=== PATIENT | male | born 1985 | race Caucasian/White ===

== ENCOUNTER 2023-07-29 20:30 | Emergency (ER) | payer OTHER, SELFPAY ==
[2023-07-29 20:34] VITALS: BP 164/107; PULSE 94; RESP 16; TEMP 36.6; O2SAT 96
[2023-07-29] MEDS: Acetaminophen 500 MG TAB 1000 MG PO (20:57)
[2023-07-29] MEDS: Ketorolac 30 MG/ML VIAL IM (20:57)
--- NOTE | 2023-07-29 21:01 | W.ED.GENAD ---
Discharge Plan Disposition Patient Disposition: Home Condition: Stable Discharge Details Clinical Impression: Patella nena Primary Care Provider: None,None ED Provider: Ronald Bae Home Meds and New Rx's Prescriptions: No Action No Known Home Meds Discharge Instructions Instructions: Patella Tendon Repair (DC), Patellar Dislocation (ED), Tendon Rupture (ED) Additional Instructions: You were seen in the emergency department for your condition known as patella nena. You likely have ruptured your patellar tendon- this will need surgical repair. I have spoken to [facility]- they will contact you to schedule surgery this week. Remain in knee immobilizer 26/09, use crutches, toe tap is ok for balance. Rest, ICE to complete numbness, ELEVATE your knee. Take 1000mg Tylenol every 6 hours like clockwork, take 440 mg Aleve every 12 hours, after 1.5 weeks please reduce Aleve to 220mg every 12 hours. Return to ED for any complete numbness or severe swelling below your left knee. Referrals: [facility] [Provider Group] Discharge Data Discharge Date/Time-TO BE ENTERED AT DEPARTURE: 07/29/23 22:03 HPI General Date/Time Provider Initiated Documentation: 07/29/23 20:36. HPI Narrative: 38 year-old male presents to ED today by POV/wheelchair, severe L knee pain with a chief complaint of L knee pain after walking down small staircase with his daughter, he fell and had severe L knee pain- unable to bear weight or move it with onset just prior to arrival. Quality described as severe knee pain all around the knee, no radiation to numbness/tingling distally, severe swelling to knee, redness, warmth to touch, endorses not being able to extend knee. Severity is described as 10/10. Palliating factors include nothing attempted yet. Provoking factors include nothing specific, no recent antibiotics or steroids. Patient not anticoagulated. Related Data Home Medications Medication Instructions Recorded Confirmed Unknown [No Known Home Meds] 07/29/23 07/29/23 Allergies Allergy/AdvReac Type Severity Reaction Status Date / Time No Known Allergies Allergy Unverified 07/29/23 20:39 General Stated Complaint: Orthopedic BRITNI: 4 Review of Systems All systems reviewed & are unremarkable except as noted in HPI and below Exam Narrative Exam Narrative: GENERAL APPEARANCE: Well-nourished, non-toxic, awake and alert, atraumatic, no acute distress. SKIN: Warm, pink, dry, intact, without rashes/lesions/ulcerations. HEAD: Normocephalic, atraumatic, normal hair distribution for gender/age. EYES: Pupils PERRLA, EOMs intact without nystagmus, normal conjunctiva, no exudates on lids/lashes. ENT: Nares patent, no circumoral cyanosis, no facial swelling NECK: Supple, trachea midline, painless cervical ROM. LUNGS/CHEST: Non-labored respirations, normal A/P diameter, symmetrical expansion, no chest wall deformity HEART (CV/PV): Regular rate, L dorsalis pedis pulse 2+, no peripheral edema, no JVD. ABDOMEN: Soft, non-distended, no guarding. MSK: Normal ROM, no swelling/deformity to bilateral UEs or LEs, moving all extremities without weakness, no cyanosis, spine midline without tenderness, normal curvature. L LE: Diffuse swelling and tenderness to the left knee, the patella is palpated superior to the knee joint, there is mild ecchymosis at the joint line, special tests of the knee not performed due to pain, patient is unable to flex the knee, sensation and circulation are intact distally and has no unilateral severe calf swelling, femur and tibia/fibula are stable. NEURO: Mental Status AAOx4 - alert to person, place, time, events No facial droop, no forehead involvement. Motor: No focal weakness - strength 5/5 in bilateral UEs and LEs, proximal and distal, symmetric. Sensory: sensation intact to light touch globally. Gait NT, was able to use crutches short distances PSYCH: euthymic, cooperative, pleasant, appropriate speech Course Vital Signs Vital signs: Vital Signs Temperature 36.6 C 07/29/23 20:34 Pulse 94 H 07/29/23 20:34 Respiratory Rate 16 07/29/23 20:34 Blood Pressure 164/107 H 07/29/23 20:34 Pulse Oximetry 96 07/29/23 20:34 Temperature 36.6 C 07/29/23 20:34 Temperature Source Oral 07/29/23 20:34 Pulse 94 H 07/29/23 20:34 Respiratory Rate 16 07/29/23 20:34 Respiratory Effort Normal 07/29/23 20:37 Blood Pressure 164/107 H 07/29/23 20:34 Pulse Oximetry 96 07/29/23 20:34 Oxygen Delivery Method Room Air 07/29/23 20:34 Oxygen Flow Rate 0 07/29/23 20:34 Pain Level 10 07/29/23 20:57 Medical Decision Making This dictation utilizes [id number] dictation software and may contain unedited grammatical errors. 38 y/o M presents to ED today with a chief complaint of L knee pain, had a minor fall with severe L knee pain on small staircase, denies numbness/tingling, endorses severe pain, onset just prior to arrival- unable to bear weight- R-side dominant. Patient denies prior knee history, denies recent antibiotics or steroid use. Patients' medical history: otherwise healthy. 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 Pertinent exam findings / vital signs include L LE: Diffuse swelling and tenderness to the left knee, the patella is palpated superior to the knee joint, there is mild ecchymosis at the joint line, special tests of the knee not performed due to pain, patient is unable to flex the knee, sensation and circulation are intact distally and has no unilateral severe calf swelling, femur and tibia/fibula are stable.. Differential / pathologies of concern include patella nena, fracture, ligamentous injury of knee. Diagnostic studies of: -XR L Knee - shows patella nena. Interventions of: -Consult ortho > knee immobilizer and crutches- surgery outpatient this week. ED Course/Assessment/Plan: 38-year-old male presents with severe left knee pain, inability to range the lower leg after carrying his daughter down steps, missed a step and does not really know what happened, does not overtly endorse a pop. X-ray shows patella nena, consulted with orthopedics Dr. Coffman, recommends knee immobilizer and crutches and outpatient surgery to follow this week. Provided the patient with to go pack of oxycodone, he did not wish to have narcotic pain management was having significant pain with crutch ambulation. Recommend RICE therapy and therapeutic dosing Tylenol and ibuprofen, strict return criteria for any signs of neurovascular compromise, counseled extensively on aggressive RICE regimen. Findings not consistent with neurovascular compromise. Disposition of Patella [place]. Patient verbalized understanding of the plan and return to ED criteria and engaged in shared decision making. Medical Records Medical records reviewed: Yes I reviewed the patient's medical records. Imaging Data Radiologic Study: Attestation: I personally reviewed and interpreted this imaging study as follows: Imaging: X-Ray My impression: Disagree with vRAD, clear tendon disruption and superior location of patella from normal anatomical position. Radiologist's impression: Exam: XR Left Knee Exam date and time: 07/29/2023 9:16 PM Age: 38 years old Clinical indication: Injury or trauma; Blunt trauma; Left; Injury date: 07/29/23; Patient HX: Knee pain, trip and fall. Patient says they tripped on stairs TECHNIQUE: Imaging protocol: Radiologic exam of the left knee. Views: 3 views. COMPARISON: No relevant prior studies available. FINDINGS: Bones/joints: No acute fracture or dislocation. Soft tissues: Mild prepatellar and anterior infrapatellar soft tissue swelling, likely contusion/edema. IMPRESSION: 1. No acute fracture or dislocation. 2. Mild prepatellar and anterior infrapatellar soft tissue swelling, likely contusion/edema. Dictated and Authenticated by: Dano Sal MD. Ordering:RENE Cardenas MD Quality:[facility] Health Related Social Needs: No Data to Display PFSH All Active Problems (Updated 07/29/23 @ 21:51 by JAH Perry) Patella nena (Acute) Social History Smoking risk assessment performed?: No
--- NOTE | 2023-07-29 21:24 | DI.RAD_ITS ---
Exam(s) XR KNEE LT 3V AP,LAT,JINA EXAM: XR KNEE LT 3V AP,LAT,JINA CLINICAL HISTORY: knee pain, trip fall. TECHNIQUE: 2D digital imaging was performed. Three views. COMPARISON: No exams were available for comparison FINDINGS: BONES: No acute fracture is present. No bony destructive lesion is seen. JOINTS: The patella is high-riding. Findings suspicious for patellar tendon tear. A small joint eff usion is seen. The joint spaces are maintained. SOFT TISSUE: Soft tissue swelling anterior to patellar tendon. IMPRESSION: Findings suspicious for patellar tendon tear. DATA REPOSITORY: RADIATION DOSE DELIVERED:
[2023-07-29 22:03] VITALS: RESP 18
--- NOTE | 2023-07-29 22:11 | DI.VRAD_ITS ---
PROCEDURE INFORMATION: Exam: XR Left Knee Exam date and time: 07/29/2023 9:16 PM Age: 38 years old Clinical indication: Injury or trauma; Blunt trauma; Left; Injury date: 07/29/23; Patient HX: Knee pain, trip and fall. Patient says they tripped on stairs TECHNIQUE: Imaging protocol: Radiologic exam of the left knee. Views: 3 views. COMPARISON: No relevant prior studies available. FINDINGS: Bones/joints: No acute fracture or dislocation. Soft tissues: Mild prepatellar and anterior infrapatellar soft tissue swelling, likely contusion/edema. IMPRESSION: 1. No acute fracture or dislocation. 2. Mild prepatellar and anterior infrapatellar soft tissue swelling, likely contusion/edema. Dictated and Authenticated by: Dano Sal MD. Ordering:RENE Cardenas MD
--- NOTE | 2023-07-30 12:55 | NUR.NOTE ---
Accessed chart for [facility] billing information. Nursing Note:
== END 2023-07-29 22:03 | disposition home or self-care (01) ==
LOC: ER 22:18
PROVIDERS: Emergency Provider Physician Assistant
DX: M22.8X2 Other disorders of patella, left knee; W10.9XXA Fall (on) (from) unspecified stairs and steps, initial encounter
CPT/HCPCS: 29505; 73562; 96372; 99284; J1885

== ENCOUNTER → 2023-08-02 03:43 | Outpatient (CLI) | payer OTHER, SELFPAY ==
--- NOTE | 2023-08-02 12:40 | DI.MRI_ITS ---
Exam(s) MR LOWER JOINT LT WO EXAM: MR LOWER JOINT LT WO CLINICAL HISTORY: SURGICAL PLANNING FOR 09/02, patellar tendon rupture, S86.894K. TECHNIQUE: Multiplanar multisequence MRI was performed. COMPARISON: CR,XR XR KNEE LT 3V AP,LAT,JINA from 07/29/2023 FINDINGS: BONES: There is no fracture or contusion pattern. JOINTS: A small joint effusion is present. Articular cartilage: Patellofemoral joint: Articular cartilage is unremarkable. Medial femoral tibial joint: Articular cartilage is unremarkable. Lateral femoral tibial joint: Articular cartilage is unremarkable. TENDONS: Extensor mechanism: Full-thickness tear of the patellar tendon at the insertion on the lower pole. R etraction of approximately 1.5 cm. Question mild thickening and intermediate signal in the distal qu adriceps tendon. Medial retinaculum: Unremarkable. Lateral retinaculum: Unremarkable. Popliteus: Unremarkable. MUSCLES: Unremarkable. MENISCI: The medial meniscus is unremarkable. The lateral meniscus is unremarkable. SOFT TISSUES: Large amount of soft tissue edema, greatest anteromedially. LIGAMENTS: Anterior Cruciate: Unremarkable. Posterior Cruciate: Unremarkable. Medial Collateral:Unremarkable. Lateral Collateral: Unremarkable. IMPRESSION: Full-thickness tear with retraction of the patellar tendon. Mild thickening at the distal quadriceps tendon but no discrete tear. DATA REPOSITORY:
== END ==
PROVIDERS: Visit Provider Student in an Organized Health Care Education/Training Program
DX: S86.812A Strain of other muscle(s) and tendon(s) at lower leg level, left leg, initial encounter (principal); X58.XXXA Exposure to other specified factors, initial encounter
CPT/HCPCS: 73721

== ENCOUNTER 2023-08-03 12:17 | Day surgery (SDC) | payer OTHER, SELFPAY ==
[2023-08-03] VITALS (55 sets, daily range): BP systolic 104–170; BP diastolic 47–99; PULSE 76–103; RESP 12–28; TEMP 36.4–36.8; O2SAT 88–98; BMI 40.9
--- NOTE | 2023-08-03 07:11 | W.PM.OP ---
Date of service: 08/03/23 Time of Service: 15:00 Operative Note Operative Note DATE OF PROCEDURE: 08/03/23 PRE-OP DIAGNOSIS: Left patellar tendon rupture POST-OP DIAGNOSIS: same PROCEDURE: Left patellar tendon repair, CPT #95752 SURGEON: Deng Herrmann EMPLOYEE WELFARE MANAGER: Benitez Mann ANESTHESIA TYPE: Local By Surgeon, General LMA/ETT and Primary Nerve Block Refer to Anesthesia Record ESTIMATED BLOOD LOSS: 20 COMPLICATIONS: None Patient was transported to: PACU Patient's condition: stable Implants: Arthrex 4.75 mm bio composite SwiveLock x 2 Indications: Please see complete medical record for details. Findings: Complex complete proximal patellar tendon rupture. Moderate patellofemoral chondromalacia. Procedure Description: In the operating room, general anesthesia was induced. The patient was positioned supine on the operating room table. All bony prominences were well-padded. Preoperative antibiotics were administered. The left knee was prepped and draped in the usual sterile fashion. The correct patient, procedure, and side of the procedure were all verified prior to incision. A longitudinal incision was made over the patella towards the tibial tubercle with full-thickness flaps taken to expose the zone of injury. There was obvious complete disruption of the patellar tendon from the central inferior pole the patella with more mid substance disruption and significant patellar tendon remnant on the patella medially and laterally. There was marked fraying of different areas of the patellar tendon. Inferior pole of the patella bone was not exposed given more of a proximal tendon injury and then pure avulsion. The patella and patellar tendon were reflected out of the way and the knee joint was copiously irrigated with normal saline to remove any loose debris and hemarthrosis. There was moderate grade chondromalacia central trochlea and undersurface patella especially medially. Given the complex tear pattern, decision was made to proceed with numerous repair sutures from the suture anchors back through the tendon as opposed to a more typical suture and repair pattern. The inferior margin patella was prepared centrally and far enough medially and laterally for 2 suture anchors and to optimize bone tendon healing with abraded bleeding bone surface while leaving the significant tendon remnant medially and laterally for later repair over the top of the central tendon repair. The 3.5 mm drill was used centrally for the medial and lateral patellar suture anchors to the appropriate depth followed by the tap and then insertion of 2 knotless 4.75 mm bio composite SwiveLock preloaded with FiberTape and suture tape. Traction on the patella was used to reapposed it to the patellar tendon. Starting medially, the suture tape was used from deep to superficial running distally along the patellar tendon medial margin and a locking Krak?w fashion minimizing the gap between the patellar tendon bone showing both talus distally. These were secured in this suture tape repair was repeated medially. The FiberTape's were then brought deeply to superficially and then in a more Zarina style repair tails were left within the suture tapes to create a ripstop configuration. Traction on the tapes was maintained by porcelain buildup assistant while the suture tapes medially and laterally were tied securing the reduction and repair. The tapes were then tied with appropriate tension as well. There was good tissue reduction and apposition centrally and laterally with less tendon to bone medially given the tendon remnant medially which was was confirmed to be brought down over the top nicely. The knotless repair suture from each anchor was then shuttled from the repair margin in a horizontal mattress fashion back up through the tendon and then shuttled through each anchor adding additional fixation strength and securing tendon to bone specifically at each repair suture anchor site. The tails of the suture tape had been left long and were then each brought up through the respective medial and lateral patellar tendon tissue from the patella and then tied over the top horizontal mattress securing the proximal tendon to the distal tendon on each side. There was good patellar tendon coverage and repair strength. 0 Vicryl was used to drape frayed proximal patellar tendon tissue over the central repair for added tissue and to cover the suture knots. The medial and lateral gutters were thoroughly irrigated and suture tape was used [id number] interrupted 2 secure and close the significant extension medially and laterally of the retinacular tears. The knee was gently flexed and the repair stable without any displacement or gapping. The wound was copiously irrigated normal saline. Deep tissue was closed with 2-0 Monocryl buried interrupted. Subcuticular closed using 2-0 Monocryl buried interrupted. Skin subcuticular closed 3-0 Monocryl running. Skin glue applied over incision followed by Mepilex Band-Aid. Elvin bandage applied ankle leg through thigh and knee mobilizer in place maintain the knee in full extension. The patient awoke from anesthesia without complication and was transferred to the recovery room in a stable condition.
--- NOTE | 2023-08-03 07:30 | PDOC.DSDIS_ITS ---
Date of service: 08/03/23 Time of Service: 16:00 Discharge Plan Disposition Patient Disposition: Home Condition: Stable Discharge Details Attending Provider: Deng Herrmann Primary Care Provider: None,None Home Meds and New Rx's Prescriptions: New aspirin 325 mg capsule 325 mg PO BID 14 Days Qty: 28 0RF naproxen 250 mg tablet 250 - 500 mg PO BID PRN (Reason: Moderate pain) Qty: 40 0RF oxycodone 5 mg tablet 5 - 10 mg PO Q4H PRN (Reason: Moderate to severe pain) Qty: 18 0RF Discharge Instructions Additional Instructions: Surgery: Left patellar tendon repair Activity: Weightbearing as tolerated with knee in full extension for 6 weeks. Use knee brace when ambulatory to maintain knee straight and crutches for support. Knee brace may be opened up and remove while resting with the knee straight. Please perform ankle pumps and wiggle toes to prevent stiffness and improve circulation. A hinged knee brace will be fit on follow-up. Physical therapy will be prescribed to start in about 3 weeks. Standard patellar tendon repair protocol- No active knee extension for 6 weeks. After 6 weeks, discontinue knee brace, but use crutches for support another 2 weeks while restoring gait. Flexion 0-30 degrees at week 2, advance about 15 de grees/week with goal 0-90 degrees flexion at week 6 postop and 120 degrees at week 8 postop. Concentric strengthening at 3 months, eccentric at 4 months. Prescriptions: Aspirin 325 mg take 1 twice daily to prevent a blood clot for 14 days, starting tomorrow morning Naproxen 250 mg take 1-2 every 12 hours with a meal as needed for moderate pain (do not use at same time as ibuprofen) Oxycodone 5 mg take 1-2 every 4-6 hours as needed for severe pain. You may use [id number] Tylenol (acetaminophen) as needed for mild pain. These pain medications may be taken all at once or in different combinations as needed. Dressings: You may loosen/adjust Elvin bandages as needed for comfort and swelling. Please keep Mepilex Band-Aid underneath in place until follow-up. Keep clean and dry. Follow-up: 10-[address] Herrmann. You may take off the leg compression stockings this evening at home. You may also leave them on a few days longer if you have a history of leg swelling or edema. Let us know right away if you develop any redness, drainage, fevers, chest pain, or trouble breathing. Do not drink alcohol or drive for at least 24 hours after anesthesia. Please call the office during business hours with any questions or concerns. Discharge Orders Discharge Orders: Discharge Order (Routine); Ordered 08/03/23 Ordered By: Deng Herrmann DS: Diagnosis Discharge Diagnosis (1) Rupture of left patellar tendon: Status: Acute
[2023-08-03] MEDS: Lactated Ringers 1,000 ML 30 ML IV (13:05)
--- NOTE | 2023-08-03 13:14 | ANES.PREOP_ITS ---
General Info Date of Service Date Performed: 08/03/23 Height: 6 ft 1 in Weight: 140.8 kg Body Mass Index (BMI): 40.9 Surgical Procedure: Operation Date: 08/03/23 13:55 Proposed Procedure Side Surgeon p Knee Patellar Tendon Repair Left Deng Herrmann MD Meds Allergies and Home Medications Allergies Allergy/AdvReac Type Severity Reaction Status Date / Time No Known Allergies Allergy Verified 08/03/23 12:42 Current Visit Medications: Current Medications Generic Name Dose Route Start Last Admin Trade Name Freq PRN Reason Stop Dose Admin Acetaminophen 1,000 mg 08/03/23 07:10 Acetaminophen 500 Mg Tab PO 09/02/23 07:09 Q6H PRN PRN Ringer's Solution 1,000 mls @ 30 mls/hr 08/03/23 06:00 08/03/23 13:05 IV 09/01/23 23:59 30 mls/hr INFUSION LEELEE Administration Cefazolin Sodium 3,000 mg/ 100 mls @ 200 mls/hr 08/03/23 06:00 Sodium Chloride IVPB 08/03/23 16:00 PREOP LEELEE Tranexamic Acid/Sodium Chloride 1,000 mg in 100 mls @ 600 mls/hr 08/03/23 06:00 IVPB 08/03/23 16:00 PREOP LEELEE IV Miscellaneous Supplies 1 each 08/03/23 06:00 Iv Access IV 09/01/23 23:59 DIRECTED LEELEE Naproxen 250 - 500 mg 08/03/23 07:10 Naproxen 500 Mg Tab PO 09/02/23 07:09 BID PRN PRN Oxycodone HCl 0 mg 08/03/23 07:10 Oxycodone 5 Mg Tab PO 09/02/23 07:09 Q3H PRN PRN Pain Sodium Chloride 0 ml 08/03/23 06:00 Normal Saline Flush 10 Ml Syr IV 09/01/23 23:59 PRN PRN Sodium Chloride 0 ml 08/03/23 06:00 Normal Saline 10 Ml Vial IJ 09/01/23 23:59 DIRECTED PRN Sterile Water 0 ml 08/03/23 06:00 Water,Injection,Sterile 10 Ml Vial IJ 09/01/23 23:59 DIRECTED PRN PFSH Active Problems Active Problems: Problem Status Onset Code Rupture of left patellar tendon 07/29/23 S86.812A Medical History Medical History History of torsion of testis Surgical History Surgical History Hx of vasectomy Tobacco Smoking/Tobacco Use Status: Never Alcohol Alcohol Intake: current Alcohol intake frequency: a few times a month Substance Use Substance use: Never Substance use type: does not use Vital Signs and Lab Results Vital Signs Most Recent Vital Signs in EMR: Most Recent Vital Signs Temp Pulse Resp BP Pulse Ox 36.4 C L 88 18 170/86 H 97 08/03/23 12:43 08/03/23 12:43 08/03/23 12:43 08/03/23 12:43 08/03/23 12:43 Lab Results Blood Type / Crossmatch: No Data to Display Complete Blood Count: No Data to Display Complete Metabolic Panel: No Data to Display Liver Function Panel: No Data to Display Coagulation Panel: No Data to Display Cardiac Panel: No Data to Display Arterial Blood Gas: No Data to Display Venous Blood Gas: No Data to Display Pancreas Panel: No Data to Display Thyroid Panel: No Data to Display Infectious Disease: 2 No Data to Display Blood Cultures: No Data to Display Toxicology Panel: No Data to Display Anesthesia Assessment and Plan Anesthesia History Personal History: No History of Anesthesia Complications Family History: No Family History of Anesthesia Complications Exercise Tolerance Exercise Tolerance: Metabolic Equivalents>4 Pertinent Negatives Pertinent Negatives: No Symptoms of GERD Cardiac & Pulmonary Exam Cardiac Exam: Normal S1/S2 Heart Sounds Pulmonary Exam: Clear Bilateral Breath Sounds Implantable Cardiac Device Does patient have a Pacemaker or an ICD?: No Airway Exam Known Difficult Airway: No Mallampati Class: 2 Mouth Opening: Normal (> 3cm) Thyromental Distance: Greater than 3 cm Neck Range of Motion: Full ROM Neck Circumference: Normal Teeth Condition: Normal Dentition ASA Classification ASA Score: ASA 2 Emergency Case?: No NPO Status NPO Status: NPO Clears >2 hours, Solids >8 hours Anesthesia Plan Resuscitation Status: Full Code Anesthesia Technique: General Anesthesia Airway Planned: Endotracheal Tube Pain Management: Surgeon and patient request nerve block Monitors Used: Standard Monitors
[2023-08-03] MEDS: ceFAZolin 3,000 MG in Normal Saline 100 ML 200 MG IVPB (14:22)
[2023-08-03] MEDS: TRANEXAMIC ACID/SOD. CHL. 1,000 MG/100 ML BAG 600 MG IVPB (14:35)
--- NOTE | 2023-08-03 14:47 | W.ANESNERVE ---
Nerve Block Single Injection Procedure Date and Time Date Performed: 08/03/23 Procedure Start: 13:55 Location Where Procedure Performed Procedure Location: Day Surgery Unit Reason Performed: Postoperative Analgesia Requesting Provider: Deng Herrmann Timeout Performed Timeout Performed: Yes Monitoring Used ECG, Blood Pressure, SpO2 and ETCO2 Sterility Sterility: Hand Hygiene, Surgical Cap, Surgical Mask, Sterile Gloves, Eye Protection and Chlorhexidine Sedation Given During Procedure Sedation Given (Indicate Dose Given): Versed IV Dose:: 4mg IVP Patient Mental Status Patient Mental Status: Sedate with meaningful communication Nerve Block 1st Nerve Block: Laterality: Left Block Type: Adductor Canal Ultrasound Image Saved?: Yes Needle / Catheter Used: 100mm SonoPlex II Local Anesthetic Bolus (Indicate Dose Given): Lidocaine used for local infiltration of skin and Ropivacaine 0.5% Dose:: 5%/20cc (100mg) Additives (Indicate Dose Given): Epinephrine to make 1:200,000 (5mcg/ml) Dose:: 100mcg and Decadron Dose:: 8mg PF Ultrasound: Sterile probe cover and gel used Nerve Stimulator: Not Used Paresthesia: None Procedure Tolerated: No Complications and Patient tolerated well Procedure Outcome: Successful Performed By: Adolfo Borjas 2nd Nerve Block: Laterality: Left Block Type: Other (Vast[facility]) Ultrasound Image Saved?: Yes Needle / Catheter Used: 100mm SonoPlex II Local Anesthetic Bolus (Indicate Dose Given): Bupivacaine 0.5% Dose:: 5%/10cc (50mg) and Exparel Dose:: 1.3%/10cc (133mg) Additives (Indicate Dose Given): Epinephrine to make 1:200,000 (5mcg/ml) Dose:: 100mcg Ultrasound: Sterile probe cover and gel used Nerve Stimulator: Not Used Paresthesia: None Procedure Tolerated: No Complications and Patient tolerated well Procedure Outcome: Successful Performed By: Adolfo Borjas
[2023-08-03] MEDS: Bupivacaine 0.25% Pres-Free W/EPI 30 ML VIAL (14:54)
--- NOTE | 2023-08-03 17:41 | W.ANESPOSTOP ---
Postoperative Evaluation Date, Time and Location Date Performed: 08/03/23 Time Performed: 17:41 Patient Location: PACU Vital Signs Most Recent Imported Vital Signs: Most Recent Vital Signs Temp Pulse Resp BP Pulse Ox 36.7 C 78 15 125/73 95 08/03/23 17:15 08/03/23 17:31 08/03/23 17:35 08/03/23 17:35 08/03/23 17:35 Pain Score Most Recent Pain Score: Most Recent Pain Score Pain Level 0 08/03/23 13:50 Assessment Mental Status: Awake (Alert & Oriented to Patient Baseline) Airway and Respiratory Function: Patent airway with normal (patient baseline) respiratory exam Cardiovascular Function: Hemodynamically Stable Hydration Status: Adequately Hydrated Nausea & Vomiting: No Nausea or Vomiting Pain: Pt. Denies Any Pain Peripheral Nerve Block: Regional nerve block not resolved at time of post operative discharge
--- NOTE | 2023-08-03 19:27 | NUR.NOTE ---
Nursing Note: Admitted from PACU fro recovery, pt states pain is 3-4/10 and tolerable, at bedside, VS WNL, CMST: color normal per race, pt can wiggle toes and dorsiflex affected foot, full sensation, temperature is warm to touch, good cap refill and positive pedal pulses
== END 2023-08-03 19:48 | disposition home or self-care (01) ==
LOC: SUR 12:17 → MS 17:47
PROVIDERS: Visit Provider Student in an Organized Health Care Education/Training Program
PROC: (CPT 27380; principal; 2023-08-03 13:45)
DX: S86.812A Strain of other muscle(s) and tendon(s) at lower leg level, left leg, initial encounter (principal); X58.XXXA Exposure to other specified factors, initial encounter; M22.42 Chondromalacia patellae, left knee
CPT/HCPCS: 27380; 76942; C9290; J0131; J0171; J0665; J0690; J1100; J1885; J2001; J2250; J2371; J2405; J2704